=== PATIENT | female | born 1980 | race Caucasian/White ===

== ENCOUNTER 2020-09-01 01:06 | Outpatient (CLI) | payer BC, SELFPAY ==
[2020-09-01 20:27] LABS: SARS-CoV-2 RNA PCR Negative
== END 2020-09-01 01:07 | disposition home or self-care (01) ==
LOC: ANHCOVIDDT 01:06
PROVIDERS: PCP Pediatrics; Visit Provider Obstetrics & Gynecology Gynecology
DX: Z01.812 Encounter for preprocedural laboratory examination (principal); Z11.59 Encounter for screening for other viral diseases
CPT/HCPCS: 87635; C9803; U0003

== ENCOUNTER 2020-09-04 00:42 | Day surgery (SDC) | payer BC, SELFPAY ==
[2020-08-24 14:47] VITALS: BMI 24.0
--- NOTE | 2020-09-01 15:42 | WPDANESEPPF ---
Anes - Initial Pre Proc Eval Procedure: Operation Date: 09/04/20 09:30 Proposed Procedures p Hysteroscopy Dilation and Curettage - Patt Davey MD Date/Time: 09/01/20 15:42 Surgeon: Patt Davey MD Pre Op Diagnosis: abnormal Uterine Bleeding, Menorrhagia Patient Data Age: 40 Gender: F Height: 1.63 m Weight: 63.5 kg Allergies Allergy/AdvReac Type Severity Reaction Status Date / Time Penicillins AdvReac Mild N/V A Unverified 09/04/20 07:47 CHILD ADHESIVE BANDAGE Allergy Mild BANDAIDS= Uncoded 09/04/20 07:47 RASH Home Medications Medication Instructions Recorded Confirmed Type cholecalciferol (vitamin D3) 50 mcg PO DAILY 08/24/20 09/04/20 History [Vitamin D3] dexmethylphenidate 10 mg PO DAILY 08/24/20 09/04/20 History fluoxetine 10 mg PO DAILY 08/24/20 09/04/20 History levothyroxine 125 mcg PO DAILY 08/24/20 09/04/20 History linaclotide [Linzess] 145 mcg PO DAILY 08/24/20 09/04/20 History Patient hx anesthesia problems: none Family hx anesthesia problems: none PMFSH Past Medical History Medical History (Updated 09/04/20 @ 08:03 by Patt Davey MD) ADHD Anxiety Hypothyroidism IBS (irritable bowel syndrome) Surgical History Surgical History (Updated 09/04/20 @ 07:43 by Patt Davey MD) S/P LEEP Family History Family History (Updated 05/24/16 @ 23:19 by DOCTOR UNKNOWN) Grandparent Family history of malignant neoplasm of bone, Onset Age: 76 Other Family history of genetic disorder Family history of malignant neoplasm of brain Family history of malignant neoplasm of breast Social History Social History Smoking status: Never smoker Alcohol intake: current Drinks per week: 5 Spiritual care concerns: No Anes - Eval Final PreProcedure Day of Procedure 09/01/20 15:42 Patient weight: normal Heart: regular rate and rhythm Lungs: clear to auscultation and normal air movement Airway: Mallampati scale class II Neurological: alert and oriented Last oral intake: >/= 8 hours ASA classification: II Emergent: no Anesthetic plan: proceed Anesthesia type and monitoring: general GIVS Informed Consent: The patient's anesthetic plan and its attendant risks and benefits were discussed with the patient/family/POA. Questions were solicited and answers provided to the satisfaction of the patient/family/POA.
[2020-09-04 07:13] VITALS: BP 96/57; PULSE 67; RESP 18; TEMP 36.1; O2SAT 100
[2020-09-04] MEDS: LACTATED RINGERS 1,000 ML 30 ML IV CONT (07:35)
--- NOTE | 2020-09-04 07:41 | PM.HPGS ---
History of Present Illness History of Present Illness Consent: Risks, benefits, and alternatives have been discussed and questions answered. Patient agrees to proceed with procedure. Chief complaint: abnormal Uterine Bleeding, Menorrhagia Narrative: Aditi Castaneda is a 40 year old female with long and heavy cycles. Pelvic u/s showed possible polypoid lesion in cavity of uterus. Recommend to proceed with hysteroscopy with D&C and possible myosure. Risks of infection, bleeding, and perforation reviewed. Possible pathology discussed. Agrees to proceed. [facility] Past Medical History Medical History (Updated 09/04/20 @ 08:03 by Patt Davey MD) ADHD Anxiety Hypothyroidism IBS (irritable bowel syndrome) Surgical History Surgical History (Updated 09/04/20 @ 07:43 by Patt Davey MD) S/P LEEP Family History Family History (Updated 05/24/16 @ 23:19 by DOCTOR UNKNOWN) Grandparent Family history of malignant neoplasm of bone, Onset Age: 76 Other Family history of genetic disorder Family history of malignant neoplasm of brain Family history of malignant neoplasm of breast Social History Social History Smoking status: Never smoker Alcohol intake: current Drinks per week: 5 Spiritual care concerns: No Meds Home Medications and Allergies Home Medications Medication Instructions Recorded Confirmed Type cholecalciferol (vitamin D3) 50 mcg PO DAILY 08/24/20 08/24/20 History [Vitamin D3] dexmethylphenidate 10 mg PO DAILY 08/24/20 08/24/20 History fluoxetine 10 mg PO DAILY 08/24/20 08/24/20 History levothyroxine 125 mcg PO DAILY 08/24/20 08/24/20 History linaclotide [Linzess] 145 mcg PO DAILY 08/24/20 08/24/20 History Allergies Allergy/AdvReac Type Severity Reaction Status Date / Time Penicillins AdvReac Mild N/V A Unverified 09/04/20 07:47 CHILD ADHESIVE BANDAGE Allergy Mild BANDAIDS= Uncoded 09/04/20 07:47 RASH Exam Const: General: healthy appearing and alert Orientation/consciousness: patient oriented x3 Resp: Effort & Inspection: normal respiratory effort Auscultation: clear to auscultation bilaterally Cardio: Rate: regular rate Rhythm: regular rhythm GI: GI Palp: Yes Soft to palpation, No Tenderness to palpation present (GI) and No Palpable mass present : External Female Exam: normal external appearance Speculum Exam - Vagina: normal appearance of the vagina and normal vaginal discharge Speculum Exam - Cervix: normal appearance of the cervix Bimanual exam- vagina & uterus: uterine size normal and consistency normal Bimanual Exam- Adnexa, other: normal adnexae and No adnexal tenderness Neuro: General: patient oriented x3 Assessment and Plan Assessment and plan (1) Menorrhagia: Code(s): N92.0 - Excessive and frequent menstruation with regular cycle Status: Acute Assessment and Plan: Plan to proceed with hysteroscopy with D&C possible myosure
[2020-09-04] MEDS: ACETAMINOPHEN 500 MG TABLET 1000 MG PO (07:42)
[2020-09-04] MEDS: KETOROLAC 30 MG/ML VIAL (*BKC) IV PUSH (09:26)
--- NOTE | 2020-09-04 09:27 | WPDHPUPDATE1 ---
History and Physical Update Update Date/Time: 09/04/20 09:27 History and Physical has been reviewed, including an updated exam of the patient. There are NO changes in the patient's condition. Risks, benefits, and alternatives have been discussed and questions answered. Patient agrees to proceed with procedure.
[2020-09-04] MEDS: LIDOCAINE HCL 1% LOCAL INJ 20 ML VIAL 10 ML INFILTRATE (09:28)
--- NOTE | 2020-09-04 09:36 | SUR.OPER ---
200ml ns in, 100ml ns out. aware
--- NOTE | 2020-09-04 09:36 | PM.PROC ---
Procedure Note - Detailed Date of procedure: 09/04/20 Pre-op diagnosis: abnormal Uterine Bleeding, Menorrhagia Post-op diagnosis: same Procedure performed: D&C hysteroscopy Description of procedure: The patient was taken to the operating room and placed under anesthesia in the dorsal lithotomy position. She has prepped and draped in usual sterile fashion. [place] speculum was placed in the vagina and cervix is grasped on the anterior lip with a tenaculum. Cervix is injected with 1% lidocaine in each quadrant. The uterus sounds to 8cm. The cervix is serially dilated to an 8 [place] and the diagnostic hysteroscope was placed. No abnormalities are noted and the hysteroscope was removed. Sharp curette is used to sample the endometrium until a good uterine cry was noted in all areas. Alll instruments are removed. Patient is taken to recovery in stable condition. Sponge, needle, and instruments are correct per the OR staff. Anesthesia: MAC and local Surgeon: Patt Davey MD Estimated blood loss (mL): 5 Drains: No Packing: No Pathology: yes (endometrial curettings) Complications: No immediate complications Condition: stable Disposition: PACU Findings: uterus 8 cm and grossly normal
[2020-09-04 09:43] VITALS: BP 94/65; PULSE 66; RESP 14
[2020-09-04 10:10] VITALS: BP 100/66; PULSE 50; RESP 20
[2020-09-04 10:40] VITALS: BP 100/71; PULSE 54; RESP 20
== END 2020-09-04 10:59 | disposition home or self-care (01) ==
PROVIDERS: PCP Pediatrics; Visit Provider Obstetrics & Gynecology Gynecology
PROC: 0U5B8ZZ Destruction of Endometrium, Via Natural or Artificial Opening Endoscopic (ICD-10-PCS; CPT 58563; principal; 2020-09-04 09:30)
DX: N93.9 Abnormal uterine and vaginal bleeding, unspecified (principal); N92.0 Excessive and frequent menstruation with regular cycle; E03.9 Hypothyroidism, unspecified; F90.9 Attention-deficit hyperactivity disorder, unspecified type; Z88.0 Allergy status to penicillin; Z79.899 Other long term (current) drug therapy
CPT/HCPCS: 58558; 88305; A9270; J1100; J1885; J2250; J2405; J2704; J3010; J7030; J7120

== ENCOUNTER → 2023-03-25 09:21 | Outpatient (CLI) | payer BC, SELFPAY ==
--- NOTE | ~2023-03-25 | XR_ITS ---
Lumbosacral Spine: AP and lateral views Clinical History: Pain Findings: The normal lordotic curve is maintained. The vertebral bodies and posterior elements are i ntact. The intervertebral disc spaces are preserved. There are mild facet joint degenerative changes from L3 through S1. The sacroiliac joints are normally outlined. Impression: Mild facet arthropathy, as above. Reviewed, dictated and finalized at location . Impression: Mild facet arthropathy, as above.
== END ==
PROVIDERS: PCP Pediatrics; Visit Provider Pediatrics
DX: M54.32 Sciatica, left side (principal); M54.31 Sciatica, right side; M12.88 Other specific arthropathies, not elsewhere classified, other specified site
CPT/HCPCS: 72100

== ENCOUNTER → 2023-04-16 10:32 | Outpatient (CLI) | payer BC, SELFPAY ==
--- NOTE | ~2023-04-16 | MR_ITS ---
MRI of the cervical spine Clinical History: Syrinx Technique: Axial T2-weighted and gradient images, and sagittal T1-weighted, T2-weighted, and STIR lotus ges were acquired. Following intravenous administration of 13 cc MultiHance gadolinium, T1-weighted f at-sat imaging was performed in the axial and sagittal planes. Findings: There is no fracture of cervical spine. Minimal grade 1 anterolisthesis of C3 over C4 prese nt. Minimal grade 1 retrolisthesis of C5 over C6 present. No suspicious bone marrow signal abnormalit y seen. At C2-C3, there is minimal disc bulge. No spinal canal stenosis, cord compression, or neural foramina l narrowing. At C3-C4, there is facet arthropathy, right worse than left, with mild right neural foraminal narrowi ng. Left neural foramen preserved. No disc bulge or herniation. No spinal canal stenosis or cord comp ression. At C4-C5, there is no disc bulge or herniation. No spinal canal stenosis, cord compression, or neural foraminal narrowing. At C5-C6, there is no disc bulge or herniation. No spinal canal stenosis, cord compression, or neural foraminal narrowing. At C6-C7, there is no disc bulge or herniation. No spinal canal stenosis, cord compression, or neural foraminal narrowing. There is minimal prominence of the central spinal canal at the C6-C7 level, evident on axial images. No abnormal postcontrast enhancement seen. No other abnormal signal seen in the spinal cord. Paravertebral soft tissues are unremarkable.. Impression: Minimal focal prominence of the central spinal canal to C6-C7 level, as detailed above. No abnormal p ostcontrast enhancement evident. Mild degenerative spondylosis, as above. Reviewed, dictated and finalized at location M. Impression: Minimal focal prominence of the central spinal canal to C6-C7 level, as detaile d above. No abnormal postcontrast enhancement evident. Mild degenerative spondylosis, as above.
--- NOTE | ~2023-04-16 | XR_ITS ---
AP and lateral views of the right hip Clinical history: Pain Findings: No acute fracture or dislocation is seen. Osseous alignment is anatomic. The right hip join t and right SI joint are preserved. Soft tissues are unremarkable. Impression: No significant abnormality is seen. Reviewed, dictated and finalized at location . Impression: No significant abnormality is seen.
== END ==
PROVIDERS: PCP Pediatrics; Visit Provider Pediatrics
DX: M25.551 Pain in right hip (principal); G95.0 Syringomyelia and syringobulbia; M47.892 Other spondylosis, cervical region
CPT/HCPCS: 72156; 73502; A9577

== ENCOUNTER → 2023-06-04 07:59 | Outpatient (CLI) | payer BC, SELFPAY ==
--- NOTE | ~2023-06-04 | MR_ITS ---
MRI of the right hip Clinical history: Pain Technique: Coronal T1-weighted, T2-weighted, and proton-density fat-sat images, and axial T1-weighted and proton-density fat-sat images were acquired through the pelvis. Coronal T2-weighted images and c oronal, axial, and sagittal proton-density fat-sat images were acquired through the right hip. Findings: There is no fracture, avascular necrosis, transient osteoporosis of either hip. Bone marrow signals the proximal femora and visualized pelvic bones are unremarkable. Bilateral hip joints are p reserved without significant degenerative change. No joint effusion. Bilateral SI joints are intact. No right acetabular labral tear identified. Visualized musculature about the pelvis is unremarkable. No muscle atrophy or edema identified. No so ft tissue mass or fluid collection seen. Visualized tendons are intact. No evidence for bursitis. IMPRESSION: No significant abnormality identified. Reviewed, dictated and finalized at [facility].
== END ==
PROVIDERS: PCP Pediatrics; Visit Provider Pediatrics
DX: M25.551 Pain in right hip (principal)
CPT/HCPCS: 73721

== ENCOUNTER → 2023-06-26 14:56 | Outpatient (CLI) | payer BC, SELFPAY ==
--- NOTE | ~2023-06-26 | MR_ITS ---
EXAMINATION: MR lumbar spine wo con DATE: 06/26/2023 15:30 INDICATION: Right leg pain. Right hip pain. TECHNIQUE: Magnetic resonance imaging (MRI) of the lumbar spine was performed without intravenous con trast. Sequences included sagittal T2-weighted FSE, sagittal T2-weighted FS FSE, sagittal T1-weighted FSE, and axial T2-weighted FSE. COMPARISON: Lumbar spine radiographs 03/25/2023 FINDINGS: There is 3 degrees levocurvature of lumbar spine. Vertebral body heights are normal. There is mildly decreased disc height at L4-L5 and moderately decreased disc height at L5-S1. The distal sp inal cord signal intensity is normal. The conus medullaris is at L1. The following disc levels are sp ecifically discussed: L1-L2: The disc does not extend beyond the endplate margin. There is mild bilateral facet joint osteo arthritis. There is no neural foraminal stenosis. There is no central canal stenosis. L2-L3: The disc is bulging. There is moderate right and severe left facet joint osteoarthritis. There is no neural foraminal stenosis. There is mild central canal stenosis. L3-L4: The disc is bulging. There is severe right and moderate left facet joint osteoarthritis. There is mild bilateral neural foraminal stenosis. There is mild central canal stenosis. L4-L5: The disc is bulging and has an annular fissure. There is severe bilateral facet joint osteoart hritis. There is mild bilateral neural foraminal stenosis. There is mild central canal stenosis. L5-S1: The disc is bulging and has an annular fissure. There is severe bilateral facet joint osteoart hritis. There is mild bilateral neural foraminal stenosis. There is mild central canal stenosis. IMPRESSION: 1. Moderate lumbar spondylosis. Reviewed, dictated and finalized at location E.
== END ==
PROVIDERS: PCP Pediatrics; Visit Provider Pediatrics
DX: M47.816 Spondylosis without myelopathy or radiculopathy, lumbar region (principal); M54.31 Sciatica, right side; G95.0 Syringomyelia and syringobulbia; M24.9 Joint derangement, unspecified
CPT/HCPCS: 72148

== ENCOUNTER 2025-03-25 10:47 | Outpatient (CLI) | payer OTHER, SELFPAY ==
--- NOTE | ~2025-03-25 | XR_ITS ---
EXAMINATION: SCOLIOSIS DATE: 03/26/2025 9:39 CDT INDICATION: Low back pain TECHNIQUE: Standing AP and lateral views of the thoracolumbar spine FINDINGS: There are 12 rib bearing thoracic vertebral bodies and 5 non-rib bearing lumbar type verteb ral bodies. There is no listhesis, compression deformity or vertebral body anomalies. There is dext roscoliosis of the thoracic spine centered at T9 measuring 10 mm. There is levoscoliosis of the lumba r spine centered at L3 measuring 6 degrees There is reversal of cervical lordosis. There is degenerat vicki anterolisthesis at C3-4 and C4-5. There is disc narrowing at C5-6 and C6-7. No prevertebral soft tissue abnormality. There is moderate multilevel left-sided facet hypertrophy at the cervical spine l evel. Lung apices are normal. IMPRESSION: 1. Mild S-shaped scoliosis of the thoracolumbar spine. 2. Severe cervical spondylosis.. Reviewed, dictated and finalized at location A.
--- NOTE | ~2025-03-25 | XR_ITS ---
3 VIEWS LUMBAR SPINE Ordering provider: Gonzalo Schultz MD History: . Lbp . Comparison: None. FINDINGS: VERTEBRAL BODIES: No visible fracture or subluxation. Degenerative changes of the spine. DISK SPACES: Narrowing of the disc L5-S1. SOFT TISSUES: Normal. IMPRESSION: No acute osseous abnormality lumbar spine. Degenerative disc disease at the level of L5-S1. Reviewed, dictated and finalized at location A.
--- NOTE | ~2025-03-25 | MR_ITS ---
MRI of the lumbar spine Clinical History: Back pain Technique: Axial T2-weighted images, and sagittal T1-weighted, T2-weighted, and and T2 fat-sat images were acquired. COMPARISON: 06/16/2023 Findings: No acute fracture or subluxations seen. Visualized maintain normal height and alignment. No suspicious bone marrow signal abnormality seen. At L1-L2, L2-L3, L3-L4, there is no disc bulge or herniation. There are mild to moderate facet joint degenerative changes at these levels. No spinal canal stenosis or neural foraminal narrowing at these levels. At L4-L5, there is disc bulge and severe facet arthropathy, with moderate central canal stenosis/thec al sac compression. There is minimal bilateral neural foraminal narrowing. At L5-S1, there is minimal disc bulge with moderate facet arthropathy. No central canal stenosis. The re is moderate left neural foraminal narrowing. Right neural foramen preserved. Paravertebral soft tissues are unremarkable. Impression: Mild to moderate degenerative spondylosis at the lower lumbar spine, as detailed above. Reviewed, dictated and finalized at location . Impression: Mild to moderate degenerative spondylosis at the lower lumbar spine, as detaile d above.
== END 2025-03-25 10:48 | disposition home or self-care (01) ==
LOC: MICIMG 10:48
PROVIDERS: PCP Pediatrics; Visit Provider Neurological Surgery
DX: M47.896 Other spondylosis, lumbar region (principal); M51.379 Other intervertebral disc degeneration, lumbosacral region without mention of lumbar back pain or lower extremity pain; M41.85 Other forms of scoliosis, thoracolumbar region; M43.02 Spondylolysis, cervical region
CPT/HCPCS: 72082; 72110; 72148